=== PATIENT | male | born 1970 | race Caucasian/White ===

== ENCOUNTER 2023-08-16 14:39 | Outpatient (CLI) | payer OTHER | END 2023-08-16 14:40 | disposition home or self-care (01) | LOC: BICRAD 14:39 | PROVIDERS: ATTEND Preventive Medicine Occupational Medicine | DX: J45.909 Unspecified asthma, uncomplicated (principal); M25.551 Pain in right hip; M51.9 Unspecified thoracic, thoracolumbar and lumbosacral intervertebral disc disorder; M47.816 Spondylosis without myelopathy or radiculopathy, lumbar region; M46.06 Spinal enthesopathy, lumbar region; M89.38 Hypertrophy of bone, other site; M25.78 Osteophyte, vertebrae; Q65.89 Other specified congenital deformities of hip | CPT/HCPCS: 71046; 72100 ==